=== PATIENT | male | born 1935 | race Caucasian/White ===

== ENCOUNTER → 2017-11-10 | Outpatient (CLI) | payer MEDICARE, BC ==
[~2017-11-10] MED LIST: ASPIRIN81 MG PO; CRESTOR10 MG PO; DIOVAN160 MG PO; METOPROLOL TART50 MG PO; ZETIA10 MG PO
--- NOTE | 2017-11-10 11:36 | Diagnostic Imaging Report ---
TECHNIQUE: Magnetic resonance imaging of the LEFT SHOULDER was performed WITHOUT injected contrast. COMPARISON: None available. HISTORY: Left shoulder pain FINDINGS: MUSCLES AND TENDONS: Rotator Cuff: Tendons: Status post rotator cuff repair. Full-thickness re-tear of the supraspinatus tendon with retraction approximately 3 cm coronal image 11. Additional partial thickness articular sided tearing of the infraspinatus Muscles: No focal muscle atrophy. Biceps Tendon: Poorly visualized. GLENOHUMERAL JOINT: Glenoid Labrum: Superior and posterior labral fraying. Articular Cartilage: Partial-thickness cartilage loss AC JOINT AND ACROMION: No hypertrophic degenerative changes of the acromioclavicular joint. Probable prior sub-acromioplasty BONE: No focal or infiltrative bone marrow replacing abnormality. No acute fracture. SOFT TISSUES: Subacromial subdeltoid bursal fluid. IMPRESSION: Status post rotator cuff repair with full thickness re-tear of the supraspinatus tendon with retraction. No atrophy Signed by: Dr. Syed Quintero M.D. on 11/10/2017 11:33 AM
== END ==
LOC: MRI 09:42
PROVIDERS: ATTEND Family Medicine
DX: M25.512 Pain in left shoulder (principal)

== ENCOUNTER 2018-04-06 18:48 | Emergency (ER) | payer MEDICARE, BC ==
[~2018-04-06] VITALS: Ht 160 cm; Wt 73.0 kg
[2018-04-06] MEDS ORDERED: METHYLPREDNISOLONE ACETATE 40 MG/ML VIAL IM ONE (20:30)
[2018-04-06] MEDS ORDERED: HYDRALAZINE HCL 25 MG TAB PO ONE (21:00)
--- OUTSIDE RECORDS SUMMARY | 2018-04-11 13:14 | XMS REPORT | Clinical Summary ---
Author Author [facility] Address Unknown Phone Unavailable Care Team Providers Care Senior Commissions Analyst Name Role Phone Fan Chairez MD PCP Allergies No Known Allergies Current Medications Prescription Sig. Disp. Refills Start End Date Status Date valsartan (DIOVAN) 160 MG Take 160 mg by mouth Active tablet daily. rosuvastatin (CRESTOR) 10 Take 10 mg by mouth Active MG tablet daily. metoprolol succinate XL Take 50 mg by mouth Active (TOPROL-XL) 50 mg 24 hr daily. tablet Active Problems Not on file Social History Tobacco Use Types Packs/Day Years Used Date Former Smoker Alcohol Use Drinks/Week oz/Week Comments Yes socially Sex Assigned at Date Recorded Not on file Last Filed Vital Signs Not on file Plan of Treatment Health Maintenance Due Date Last Done Comments SHINGRIX VACCINE (#1) 1987 ZOSTER VACCINE 1997 PNEUMOCOCCAL 2002 POLYSACCHARIDE VACCINE AGE 65 AND OVER PNEUMOCOCCAL-13 2002 INFLUENZA VACCINE 01/25/2018 Results Not on fileafter 04/05/2017 Insurance Payer Benefit Subscriber ID Type Phone Address Plan / Group MEDICARE MEDICARE xxxxxxxxxx Medicare [place], [place] PART A AND B BCBS BCBS xxxxxxxxxxxx PPO CHOICE PPO/GEOVANY MASTRESON PPO
--- OUTSIDE RECORDS SUMMARY | 2018-04-11 13:14 | XMS REPORT ---
Author Author [facility] Address Unknown Phone Unavailable Care Team Providers Care Timber Feller Name Role Phone Zafar MATOS Unavailable Unavailable Problems This patient has no known problems. Allergies, Adverse Reactions, Alerts This patient has no known allergies or adverse reactions. Medications This patient has no known medications. Results Test Description Test Time Test Comments Text Results Atomic Results Result Comments MRI SHOULDER LEFT WO [place] [id number] [place] [address] Patient Name: DESI POWELL MR #: [id number] : 1935 Age/Sex: 82/M Req #: [id number] Adm Physician: Ordered by: TIAN MATOS MD Report #: [id number] Location: MRI Room/Bed: Procedure: [id number] MRI/MRI SHOULDER LEFT WO Exam Date: Exam Time: REPORT STATUS: Signed TECHNIQUE: Magnetic resonance imaging of the LEFT SHOULDER was performed WITHOUT injected contrast. COMPARISON: None available. HISTORY: Left shoulder pain FINDINGS: MUSCLES AND TENDONS: Rotator Cuff: Tendons: Status post rotator cuff repair. Full-thickness re-tear of the supraspinatus tendon with retraction approximately 3 cm coronal image 11. Additional partial thickness articular sided tearing of the infraspinatus Muscles: No focal muscle atrophy. Biceps Tendon: Poorly visualized. GLENOHUMERAL JOINT: Glenoid Labrum: Superior and posterior labral fraying. Articular Cartilage: Partial-thickness cartilage loss AC JOINT AND ACROMION: No hypertrophic degenerative changes of the acromioclavicular joint. Probable prior sub-acromioplasty BONE: No focal or infiltrative bone marrow replacing abnormality. No acute fracture. SOFT TISSUES: Subacromial subdeltoid bursal fluid. IMPRESSION: Status post rotator cuff repair with full thickness re-tear of the supraspinatus tendon with retraction. No atrophy Signed by: Dr. Александр Zavala M.D. on 11/10/2017 11:33 AM Dictated By: АЛЕКСАНДР ZAVALA MD [id number] Transcribed By: ANA MARIA on 11/10/17 1133 COPY TO: TIAN MATOS MD
== END 2018-04-06 22:02 | disposition home or self-care (01) ==
LOC: FSED 18:48
DX: R09.81 Nasal congestion (principal); B34.9 Viral infection, unspecified; I10 Essential (primary) hypertension
CPT/HCPCS: 96372; 99282; J1030

== ENCOUNTER 2018-05-14 09:17 | Emergency (ER) | payer MEDICARE, BC ==
[~2018-05-14] VITALS: Ht 162.6 cm; Wt 73.0 kg
--- OUTSIDE RECORDS SUMMARY | 2018-05-14 09:20 | XMS REPORT | Clinical Summary ---
Author Author [facility] Address Unknown Phone Unavailable Care Team Providers Care Last Sorter Name Role Phone Fan Chairez MD PCP Allergies No Known Allergies Medications End Date Status Medication Sig Dispensed Refills Start Date Active valsartan (DIOVAN) 160 MG Take 160 mg 0 tablet by mouth daily. Active rosuvastatin (CRESTOR) 10 Take 10 mg by 0 MG tablet mouth daily. Active metoprolol succinate XL Take 50 mg by 0 (TOPROL-XL) 50 mg 24 hr mouth daily. tablet Active Problems Not on file Social History Date Tobacco Use Types Packs/Day Years Used Former Smoker Alcohol Use Drinks/Week oz/Week Comments Yes socially Sex Assigned at Date Recorded Not on file Industry Job Start Date Occupation Not on file Not on file Not on file Travel End Travel History Travel Start No recent travel history available. Last Filed Vital Signs Not on file Plan of Treatment Health Maintenance Due Date Last Done Comments SHINGRIX VACCINE (1 of 2) 1987 ZOSTER VACCINE 1997 PNEUMOCOCCAL 2002 POLYSACCHARIDE VACCINE AGE 65 AND OVER PNEUMOCOCCAL-13 2002 INFLUENZA VACCINE 01/25/2018 Results Not on fileafter 05/13/2017 Insurance Payer Benefit Subscriber ID Type Phone Address Plan / Group MEDICARE MEDICARE xxxxxxxxxx Medicare [place], [place] PART A AND B BCBS BCBS xxxxxxxxxxxx PPO CHOICE PPO/GEOVNAY MASTERSON PPO Advance Directives Patient has advance care planning documents on file. For more information, akash marquez contact: [facility] [address] [place] [address]
[2018-05-14] MEDS ORDERED: DEXAMETHASONE SOD PHOS 10 MG/1 ML VIAL IM ONE (09:45)
[2018-05-14] MEDS ORDERED: DEXAMETHASONE SOD PHOS 10 MG/1 ML VIAL IM NR (09:45)
== END 2018-05-14 09:50 | disposition home or self-care (01) ==
LOC: FSED 09:17
DX: R05 Cough (principal); J20.8 Acute bronchitis due to other specified organisms; I25.10 Atherosclerotic heart disease of native coronary artery without angina pectoris
CPT/HCPCS: 99283

== ENCOUNTER 2019-01-27 11:55 | Emergency (ER) | payer MEDICARE, BC, OTHER ==
[~2019-01-27] VITALS: Ht 160 cm; Wt 69.9 kg
--- OUTSIDE RECORDS SUMMARY | 2019-01-27 11:59 | XMS REPORT | Clinical Summary ---
Author Author [facility] Address Unknown Phone Unavailable Care Team Providers Care Construction Project Assistant Name Role Phone Fan Chairez MD PCP [...] Health Maintenance Due Date Last Done Comments SHINGLES VACCINES (#1) 1987 65+ PNEUMOCOCCAL VACCINE 2002 (1 of 2 - PCV13) INFLUENZA VACCINE 01/25/2019 Results Not on fileafter 01/26/2018 Insurance Type Payer Benefit Subscriber ID Effective Phone Address Plan / Dates Group Medicare MEDICARE MEDICARE xxxxxxxxxx 2002-P [place], PART A AND resent [place] B PPO BCBS BCBS xxxxxxxxxxxx 2011-P CHOICE resent PPO/GEOVANY MASTERSON PPO Advance Directives Patient has advance care planning documents on file. For more information, akash e contact: [facility] [address] [place] [address]
[2019-01-27 12:37] VITALS: BP 148/75
== END 2019-01-27 12:34 | disposition home or self-care (01) ==
LOC: FSED 11:55
DX: R05 Cough (principal); I10 Essential (primary) hypertension; I51.9 Heart disease, unspecified; J02.0 Streptococcal pharyngitis
CPT/HCPCS: 99282

== ENCOUNTER → 2019-04-11 | Outpatient (CLI) | payer MEDICARE, BC, OTHER ==
--- NOTE | 2019-04-11 14:01 | Diagnostic Imaging Report ---
History: Radiculopathy Comparison studies: None. Technique: Sagittal T1, T2 and IR, axial T2 and axial gradient echo Intravenous contrast: None Findings: Alignment: Minimal anterolisthesis of C4 on C5, retrolisthesis of C5 on C6 and anterolisthesis of C7 on T1 are most likely degenerative in etiology. Cervicomedullary junction: No abnormalities. Patent foramen magnum. Soft tissues: No T2 hyperintense inflammatory changes. Spinal cord: Normal in size and signal from the foramen magnum through T1. Vertebrae: No fracture or infection. Incidental foci of T1 hyperintensity in the C5 and C6 vertebrae may be small hemangiomas. Degenerative changes: Loss of T2 disc signal from C2 to the included T5 vertebral level to C2-C3: Patent canal and foramina. C3-C4: Symmetric disc bulge and mildly thickened ligamentum flavum result in mild canal stenosis. Moderate left foraminal stenosis due to uncovertebral arthrosis. Patent right foramen. Synovitis at the left facet with reactive T2 hyperintense C4-C5: Minimal anterolisthesis of C4 on C5 with associated uncovered disc/disc bulge, uncovertebral arthrosis and severe left and mild right facet arthrosis with severe left and mild right foraminal stenosis. No significant canal stenosis. C5-C6: Moderate loss of disc height. Minimal retrolisthesis of C5 on C6 with disc osteophyte complex, mildly thickened ligamentum flavum, uncovertebral arthrosis and mild facet arthrosis with moderate canal stenosis and severe bilateral foraminal stenosis. C6-C7: Disc osteophyte complex, mildly thickened ligamentum flavum and uncovertebral arthrosis with mild to moderate left and mild right foraminal stenosis and mild canal stenosis. C7-T1: Minimal anterolisthesis of C7 on T1 with associated uncovered disc and bilateral facet arthrosis without significant canal or foraminal stenosis. T1-T5: Mild multilevel disc degeneration. Disc bulge and facet arthrosis at T1-T2 result in mild bilateral foraminal stenosis. Incidental findings: Mild reactive T2 hyperdensity is mucosal thickening or effusion in the partially imaged mastoid air cells (left greater than right). IMPRESSION: 1. Multilevel disc degeneration, worse/moderate at C5-C6. 2. Degenerative canal stenosis from C3 to C7, worse/moderate at C5-C6. 3. Multilevel degenerative foraminal stenosis (moderate left at C3-C4, severe left at C4-C5 and bilaterally at C5-C6 and moderate left at C6-C7). 4. Multilevel facet arthrosis with moderate synovitis at the left C3-C4 facet. Signed by: Dr. Shankar Pelaez M.D. on 04/11/2019 1:58 PM
== END ==
LOC: MRI 10:29
PROVIDERS: ATTEND Family Medicine
DX: M54.12 Radiculopathy, cervical region (principal)
CPT/HCPCS: 72141

== ENCOUNTER → 2020-02-28 | Outpatient (CLI) | payer MEDICARE, BC, OTHER ==
--- NOTE | 2020-02-28 12:53 | Diagnostic Imaging Report ---
History: Dementia Comparison studies: None. Technique: Tree T1, axial DWI, axial T2 FLAIR, axial T2*GRE and axial T2. Intravenous contrast: None. Findings: Structural lesions: No intra-or extra-axial masses. No hematomas. Atrophy: Moderate disproportionate volume loss in the bilateral parietal lobes is superimposed on mild generalized parenchymal volume loss. No significant disproportionate hippocampal, brainstem or cerebellar atrophy. Maya matter: Cortex: No signal abnormalities. No encephalomalacia. Basal ganglia: No atrophy or signal abnormalities. Thalami: No signal abnormalities. White matter signal intensity: A few scattered T2 FLAIR hyperintense foci in the supratentorial white matter are nonspecific but are most compatible with chronic microvascular ischemic changes. Mild T2 FLAIR hyperintense capping banding present along the ventricular margins. Findings correlate to Fazekas Grade 1 white matter changes. Micro hemorrhages: None. Extra axial spaces: No mass, no fluid collection. Ventricles: Normal in size and configuration. No hydrocephalus. Other: Skull: No bone marrow abnormalities. Vessels: Expected flow voids present in the major arteries and dural sinuses.. Sella: Normal in size. No intra-or suprasellar abnormalities. Cranio-cervical junction: No abnormalities. Patent foramen magnum. No Chiari one malformation. Incidental findings: Mild T2 hyperintense inflammatory changes in the mastoids. IMPRESSION: 1. Moderate biparietal volume loss superimposed on mild generalized parenchymal volume loss. 2. Mild chronic microvascular ischemic changes. Signed by: Dr. Shankar Pelaez M.D. on 02/28/2020 12:50 PM
== END ==
LOC: MRI 10:43
PROVIDERS: ATTEND Family Medicine
DX: F02.80 Dementia in other diseases classified elsewhere, unspecified severity, without behavioral disturbance, psychotic disturbance, mood disturbance, and anxiety (principal)
CPT/HCPCS: 70551

== ENCOUNTER → 2021-03-13 | Outpatient (CLI) | payer MEDICARE, BC, OTHER | LOC: MRI 10:38 | PROVIDERS: ATTEND Family Medicine | DX: M25.562 Pain in left knee (principal) ==

== ENCOUNTER → 2021-08-07 | Outpatient (CLI) | payer MEDICARE, BC | LOC: NM 13:47 | PROVIDERS: ATTEND Family Medicine | DX: R10.11 Right upper quadrant pain (principal) | CPT/HCPCS: 78227; A9537 ==

== ENCOUNTER 2021-08-18 03:01 | Inpatient (IN) | payer MEDICARE, BC ==
[~2021-08-18] VITALS: Ht 160 cm; Wt 61.7 kg
[2021-08-18 03:29] LABS: BASOPHILS % 0.2 % (0.0-1.0); EOSINOPHILS % 0.1 % (0.0-6.0); HEMATOCRIT 26.8 % (38.2-49.6); LYMPHOCYTES # (AUTO) 0.6 (1.0-3.2); MEAN CORPUSCULAR HEMOGLOBIN 30.9 pg (28-32); MEAN CORPUSCULAR HGB CONC 29.9 g/dL (31-35); MEAN CORPUSCULAR VOLUME 103.5 fL (81-99); MONOCYTES # (AUTO) 0.7 (0.2-0.8); MONOCYTES % 6.9 % (4.4-11.3); NEUTROPHILS % 86.5 % (38.7-80.0); PLATELET COUNT 271 x10e3/uL (140-360); RED BLOOD COUNT 2.59 x10e6/uL (4.3-5.7); RED CELL DISTRIBUTION WIDTH 14.1 % (11.7-14.4)
[2021-08-18 03:48] LABS: ALBUMIN 3.6 g/dL (3.5-5.0); ALBUMIN/GLOBULIN RATIO 1.1 (0.8-2.0); ANION GAP 15.3 mmol/L (8-16); CALCIUM 8.9 mg/dL (8.4-10.2); CREATININE, SERUM 1.28 mg/dL (0.72-1.25); POTASSIUM 4.3 mmol/L (3.5-5.1)
[2021-08-18] MEDS ORDERED: SODIUM CHLORIDE 0.9% 50ML 50 ML ONE (04:13)
[2021-08-18] MEDS ORDERED: IOPAMIDOL 370 MG/ML 200 ML INFUS..BTL INJ ONE (04:14)
[2021-08-18] MEDS ORDERED: ASPIRIN 81 MG CHEW TAB PO ONE (04:30)
[2021-08-18 04:53] LABS: CLARITY,URINE CLEAR (CLEAR); COLOR,URINE YELLOW (YELLOW); KETONES,URINE NEGATIVE (NEGATIVE); LEUKOCYTE ESTERASE ,URINE NEGATIVE (NEGATIVE); NITRITE,URINE NEGATIVE (NEGATIVE); PROTEIN,URINE DIPSTICK TRACE (NEGATIVE); URINE UROBILINOGEN 0.2 mg/dL (0.2 - 1)
[2021-08-18 05:00] LABS: CREATINE KINASE MB 2.4 ng/mL (0-5.0)
[2021-08-18 05:01] LABS: BACTERIA,URINE FEW /HPF; EPITHELIAL CELLS,URINE RARE /LPF; RBC,URINE 0-5 /HPF (0-5); WBC,URINE (MAN) 0-5 /HPF (0-5)
[2021-08-18] MEDS: DEXTROSE 50% SYRINGE 50 ML IV PRN ×2 (05:25→06:07)
[2021-08-18] MEDS ORDERED: DEXTROSE 50% SYRINGE 50 ML IV ONE (05:26)
[2021-08-18] MEDS ORDERED: DEXTROSE 5%/0.9% SOD CHL 1,000 ML IV ONE (05:30)
[2021-08-18 08:20] VITALS: BP 160/79
[2021-08-18 08:38] VITALS: BP 160/79
[2021-08-18 12:00] VITALS: BP 146/67
[2021-08-18 12:16] LABS: CREATINE KINASE MB 2.8 ng/mL (0-5.0)
[2021-08-18 16:00] VITALS: BP 126/73
[2021-08-18 20:13] VITALS: BP 143/69
[2021-08-18 20:58] LABS: CREATINE KINASE MB 1.8 ng/mL (0-5.0)
[2021-08-19] VITALS (7 sets, daily range): BP systolic 147–175; BP diastolic 61–82
[2021-08-19 05:28] LABS: BASOPHILS % 0.7 % (0.0-1.0); EOSINOPHILS # (AUTO) 0.1 (0.0-0.4); EOSINOPHILS % 2.3 % (0.0-6.0); HEMATOCRIT 22.3 % (38.2-49.6); LYMPHOCYTES # (AUTO) 1.5 (1.0-3.2); LYMPHOCYTES % 25.7 % (18.0-39.1); MEAN CORPUSCULAR HEMOGLOBIN 31.4 pg (28-32); MEAN CORPUSCULAR HGB CONC 31.4 g/dL (31-35); MONOCYTES # (AUTO) 0.6 (0.2-0.8); MONOCYTES % 10.4 % (4.4-11.3); NEUTROPHILS # (AUTO) 3.5 (2.1-6.9); NEUTROPHILS % 60.7 % (38.7-80.0); PLATELET COUNT 231 x10e3/uL (140-360); RED BLOOD COUNT 2.23 x10e6/uL (4.3-5.7); RED CELL DISTRIBUTION WIDTH 13.9 % (11.7-14.4)
[2021-08-19 06:10] LABS: ANION GAP 9.7 mmol/L (8-16); CALCIUM 7.8 mg/dL (8.4-10.2); CREATININE, SERUM 1.25 mg/dL (0.72-1.25); POTASSIUM 3.7 mmol/L (3.5-5.1)
[2021-08-19 07:07] LABS: % IRON SATURATION 4 % (15-50); IRON 14 ug/dL (65-175); TOTAL IRON BINDING CAPACITY 319 ug/dL (261-478); TRANSFERRIN 228 mg/dL (174-364)
[2021-08-19] MEDS: SIMVASTATIN 20 MG TAB PO SCH (09:46)
[2021-08-19] MEDS: VALSARTAN 160 MG TAB PO SCH (09:46)
[2021-08-19] MEDS ORDERED: BISACODYL 10 MG SUPP PR PRN (11:00)
[2021-08-19] MEDS: IRON SUCROSE 100 MG in SODIUM CHLORIDE 0.9% 100 ML 100 ML IV SCH (12:19)
[2021-08-20] VITALS (7 sets, daily range): BP systolic 139–168; BP diastolic 71–83
[2021-08-20 05:50] LABS: BASOPHILS % 0.4 % (0.0-1.0); EOSINOPHILS # (AUTO) 0.1 (0.0-0.4); EOSINOPHILS % 1.3 % (0.0-6.0); HEMOGLOBIN 7.1 g/dL (14.0-18.0); LYMPHOCYTES # (AUTO) 1.1 (1.0-3.2); LYMPHOCYTES % 16.7 % (18.0-39.1); MEAN CORPUSCULAR HGB CONC 30.9 g/dL (31-35); MEAN CORPUSCULAR VOLUME 100.4 fL (81-99); MONOCYTES # (AUTO) 0.7 (0.2-0.8); MONOCYTES % 9.8 % (4.4-11.3); NEUTROPHILS # (AUTO) 4.8 (2.1-6.9); NEUTROPHILS % 71.7 % (38.7-80.0); PLATELET COUNT 249 x10e3/uL (140-360); RED BLOOD COUNT 2.29 x10e6/uL (4.3-5.7); RED CELL DISTRIBUTION WIDTH 13.4 % (11.7-14.4)
[2021-08-20 06:11] LABS: ANION GAP 10.7 mmol/L (8-16); CALCIUM 8.3 mg/dL (8.4-10.2); CREATININE, SERUM 1.18 mg/dL (0.72-1.25); POTASSIUM 3.7 mmol/L (3.5-5.1)
[2021-08-20] MEDS: IRON SUCROSE 100 MG in SODIUM CHLORIDE 0.9% 100 ML 100 ML IV SCH (09:06)
[2021-08-20] MEDS: SIMVASTATIN 20 MG TAB PO SCH (09:06)
[2021-08-20] MEDS: VALSARTAN 160 MG TAB PO SCH (09:06)
[2021-08-20] MEDS ORDERED: LIDOCAINE HCL 2% LOCAL INJ 5 ML SDV VIAL INJ ONE (12:56)
[2021-08-20] MEDS ORDERED: PROPOFOL IV EMULSION 10 MG/ML 20 ML VIAL ONE (12:56)
== END 2021-08-20 18:29 | disposition home or self-care (01) | DRG 384 ==
LOC: ER 03:13 → ERHOLD 04:32 → MED/SURG 08:17 → OBSVTOIN 08-19 08:24
PROVIDERS: ADMIT Family Medicine; ATTEND Family Medicine
PROC: 0DB78ZX Excision of Stomach, Pylorus, Via Natural or Artificial Opening Endoscopic, Diagnostic (ICD-10-PCS; 2021-08-20)
PROC: 0DB68ZX Excision of Stomach, Via Natural or Artificial Opening Endoscopic, Diagnostic (ICD-10-PCS; 2021-08-20)
PROC: 0DB58ZX Excision of Esophagus, Via Natural or Artificial Opening Endoscopic, Diagnostic (ICD-10-PCS; principal; 2021-08-20 14:00)
DX: K26.9 Duodenal ulcer, unspecified as acute or chronic, without hemorrhage or perforation (principal); E16.2 Hypoglycemia, unspecified; D50.0 Iron deficiency anemia secondary to blood loss (chronic); E86.0 Dehydration; F03.90 Unspecified dementia, unspecified severity, without behavioral disturbance, psychotic disturbance, mood disturbance, and anxiety; I10 Essential (primary) hypertension; R00.1 Bradycardia, unspecified; K21.9 Gastro-esophageal reflux disease without esophagitis; Z20.822 Contact with and (suspected) exposure to COVID-19; Z87.891 Personal history of nicotine dependence
CPT/HCPCS: 36415; 43239; 71045; 74177; 80048; 80053; 81001; 82550; 82553; 82607; 82948; 83525; 83540; 83880; 84206; 84466; 84484; 84681; 85025; 88305; 88312; 93005; 99284; G0378; J1756; J2001; J7042; J7799; Q9967; U0002

== ENCOUNTER 2022-03-09 08:40 | Emergency (ER) | payer MEDICARE, BC ==
[~2022-03-09] VITALS: Ht 160 cm; Wt 61.7 kg
[2022-03-09] MEDS ORDERED: SODIUM CHLORIDE 0.9% 500ML 500 ML IV ONE (09:45)
[2022-03-09 09:46] LABS: BASOPHILS % 0.6 % (0.0-1.0); EOSINOPHILS # (AUTO) 0.1 (0.0-0.4); EOSINOPHILS % 1.6 % (0.0-6.0); HEMATOCRIT 38.6 % (38.2-49.6); HEMOGLOBIN 12.3 g/dL (14.0-18.0); LYMPHOCYTES % 20.7 % (18.0-39.1); MEAN CORPUSCULAR HEMOGLOBIN 30.8 pg (28-32); MEAN CORPUSCULAR HGB CONC 31.9 g/dL (31-35); MEAN CORPUSCULAR VOLUME 96.5 fL (81-99); MONOCYTES # (AUTO) 0.5 (0.2-0.8); MONOCYTES % 9.2 % (4.4-11.3); NEUTROPHILS # (AUTO) 3.3 (2.1-6.9); NEUTROPHILS % 67.7 % (38.7-80.0); PLATELET COUNT 226 x10e3/uL (140-360); RED CELL DISTRIBUTION WIDTH 14.1 % (11.7-14.4)
[2022-03-09 10:06] LABS: CLARITY,URINE CLEAR (CLEAR); COLOR,URINE YELLOW (YELLOW); KETONES,URINE 2+ (NEGATIVE); LEUKOCYTE ESTERASE ,URINE NEGATIVE (NEGATIVE); NITRITE,URINE NEGATIVE (NEGATIVE); PROTEIN,URINE DIPSTICK 2+ (NEGATIVE); URINE UROBILINOGEN 1 mg/dL (0.2 - 1)
[2022-03-09 10:08] LABS: INR 1.08
[2022-03-09 10:10] LABS: ALANINE AMINOTRANSFERASE 8 IU/L (0-55); ALBUMIN/GLOBULIN RATIO 1.4 (0.8-2.0); ALKALINE PHOSPHATASE 47 IU/L (40-150); ANION GAP 15.5 mmol/L (8-16); BLOOD UREA NITROGEN 23 mg/dL (7-26); BUN/CREATININE RATIO 17 (6-25); CALCIUM 9.2 mg/dL (8.4-10.2); CARBON DIOXIDE 22 mmol/L (22-29); CHLORIDE 108 mmol/L (98-107); CREATINE KINASE 46 IU/L (30-200); CREATININE, SERUM 1.33 mg/dL (0.72-1.25); GLUCOSE 139 mg/dL (74-118); LIPASE 38 U/L (8-78); POTASSIUM 4.5 mmol/L (3.5-5.1); SODIUM 141 mmol/L (136-145)
[2022-03-09 10:18] LABS: BACTERIA,URINE FEW /HPF; EPITHELIAL CELLS,URINE RARE /LPF; RBC,URINE 0-5 /HPF (0-5); WBC,URINE (MAN) 0-5 /HPF (0-5)
[2022-03-09 10:19] LABS: MUCUS,URINE FEW (RARE)
[2022-03-09] MEDS ORDERED: IOPAMIDOL 370 MG/ML 100 ML INFUS..BTL INJ ONE (10:49)
[2022-03-09] MEDS ORDERED: MAGNESIUM/ALUMINUM/SIMETHICONE 30 ML UDC PO ONE (12:30)
[2022-03-09] MEDS ORDERED: LIDOCAINE VISC 2% SOLN 15 ML UDC PO ONE (12:30)
[2022-03-09] MEDS ORDERED: BELLADONNA ALK/PHENOBARBITAL 5 ML UDC PO ONE (12:30)
[2022-03-09] MEDS ORDERED: PREDNISONE20 MG PO (12:44)
[2022-03-09 12:53] VITALS: BP 155/76
== END 2022-03-09 12:56 | disposition home or self-care (01) ==
LOC: ER 08:50
DX: R10.12 Left upper quadrant pain (principal); I10 Essential (primary) hypertension; I25.2 Old myocardial infarction; E78.5 Hyperlipidemia, unspecified; Z95.5 Presence of coronary angioplasty implant and graft; F17.200 Nicotine dependence, unspecified, uncomplicated; Z87.11 Personal history of peptic ulcer disease
CPT/HCPCS: 36415; 71045; 74177; 80053; 81001; 82550; 82553; 83690; 84484; 85025; 85610; 85730; 93005; 99284; C9113; J7040; Q9967

== ENCOUNTER 2022-12-02 05:53 | Inpatient (IN) | payer MEDICARE, BC ==
[~2022-12-02] VITALS: Ht 160 cm; Wt 61.7 kg
[~2022-12-02 05:53] MED LIST changes: +PREDNISONE20 MG PO
[2022-12-02] MEDS ORDERED: Morphine 2mg Syringe 2 MG/ML SYR IV STA (06:16)
[2022-12-02] MEDS ORDERED: ONDANSETRON HCL INJ 2MG/ML 2ML 2 MG/ML VIAL IV STA (06:16)
[2022-12-02] MEDS ORDERED: SODIUM CHLORIDE 0.9% 1000ML 1,000 ML IV STA (06:32)
[2022-12-02 07:20] LABS: BASOPHILS % 0.4 % (0.0-1.0); EOSINOPHILS # (AUTO) 0.1 (0.0-0.4); EOSINOPHILS % 0.7 % (0.0-6.0); HEMATOCRIT 36.8 % (38.2-49.6); HEMOGLOBIN 11.9 g/dL (14.0-18.0); LYMPHOCYTES # (AUTO) 0.8 (1.0-3.2); LYMPHOCYTES % 9.3 % (18.0-39.1); MEAN CORPUSCULAR HEMOGLOBIN 31.1 pg (28-32); MEAN CORPUSCULAR HGB CONC 32.3 g/dL (31-35); MEAN CORPUSCULAR VOLUME 96.1 fL (81-99); MONOCYTES # (AUTO) 0.8 (0.2-0.8); NEUTROPHILS # (AUTO) 7.2 (2.1-6.9); NEUTROPHILS % 80.2 % (38.7-80.0); PLATELET COUNT 234 x10e3/uL (140-360); RED BLOOD COUNT 3.83 x10e6/uL (4.3-5.7); RED CELL DISTRIBUTION WIDTH 13.1 % (11.7-14.4)
[2022-12-02 07:43] LABS: INR 0.95; PROTHROMBIN TIME 13.2 seconds (11.9-14.5)
[2022-12-02 07:44] LABS: PARTIAL THROMBOPLASTIN TIME 36.6 seconds (23.8-35.5)
[2022-12-02 07:46] LABS: ALBUMIN 3.7 g/dL (3.5-5.0); ALBUMIN/GLOBULIN RATIO 1.1 (0.8-2.0); ALKALINE PHOSPHATASE 47 IU/L (40-150); ANION GAP 13.7 mmol/L (8-16); BLOOD UREA NITROGEN 17 mg/dL (7-26); BUN/CREATININE RATIO 12 (6-25); CALCIUM 9.5 mg/dL (8.4-10.2); CARBON DIOXIDE 22 mmol/L (22-29); CHLORIDE 106 mmol/L (98-107); CREATININE, SERUM 1.44 mg/dL (0.72-1.25); GLUCOSE 106 mg/dL (74-118); MAGNESIUM 2.1 MG/DL (1.3-2.1); POTASSIUM 3.7 mmol/L (3.5-5.1); SODIUM 138 mmol/L (136-145)
[2022-12-02 08:01] LABS: ALANINE AMINOTRANSFERASE 7 IU/L (0-55)
[2022-12-02] MEDS ORDERED: IOPAMIDOL 370 MG/ML 100 ML INFUS..BTL INJ ONE (08:50)
[2022-12-02] MEDS: ENOXAPARIN SODIUM INJ 100 MG/ML SYR SC SCH ×2 (09:42→21:37)
[2022-12-02] MEDS ORDERED: ONDANSETRON HCL INJ 2MG/ML 2ML 2 MG/ML VIAL IV PRN (09:45)
[2022-12-02] MEDS ORDERED: Morphine 2mg Syringe 2 MG/ML SYR IV PRN (10:00)
[2022-12-02 11:14] VITALS: PULSE 71; RESP 20; O2SAT 97
[2022-12-02] MEDS ORDERED: Morphine 4mg INJECTION 4 MG/ML INJ IV STA (13:21)
[2022-12-02 14:58] VITALS: BP 168/98; PULSE 79; RESP 17; TEMP 100.1; O2SAT 98
[2022-12-02 15:00] LABS: CREATINE KINASE 77 IU/L (30-200)
[2022-12-02] MEDS ORDERED: ROPINIROLE HC0.25 MG PO (16:16)
[2022-12-02] MEDS ORDERED: GEMTESA75 MG (16:16)
[2022-12-02] MEDS ORDERED: ARICEPT5 MG PO (16:29)
[2022-12-02] MEDS ORDERED: OMEPRAZOLE40 MG PO (16:29)
[2022-12-02] MEDS ORDERED: IRBESARTAN150 MG PO (16:29)
[2022-12-02 16:47] VITALS: BP 168/98; PULSE 79; RESP 17; TEMP 100.1; O2SAT 98
[2022-12-02 16:49] VITALS: BP 168/98; PULSE 79; RESP 17; TEMP 99.7; O2SAT 98
[2022-12-02 20:19] VITALS: BP 137/75; PULSE 81; RESP 18; TEMP 99.5; O2SAT 94
[2022-12-02 21:00] VITALS: BP 137/75; PULSE 81; RESP 18; TEMP 99.5; O2SAT 94
[2022-12-02] MEDS: DONEPEZIL HCL 5 MG TAB PO SCH (21:35)
[2022-12-02] MEDS: HYDROCODONE/APAP 5MG-325MG TAB PO PRN (21:36)
[2022-12-02] MEDS: ROPINIROLE HCL 0.25 MG TAB PO SCH (21:36)
[2022-12-03] VITALS (8 sets, daily range): BP systolic 107–166; BP diastolic 64–93; PULSE 56–72; RESP 16–18; TEMP 97.7–98.5; O2SAT 94–98
[2022-12-03 05:41] LABS: BASOPHILS % 0.5 % (0.0-1.0); EOSINOPHILS % 0.5 % (0.0-6.0); HEMATOCRIT 34.1 % (38.2-49.6); HEMOGLOBIN 10.9 g/dL (14.0-18.0); LYMPHOCYTES # (AUTO) 1.2 (1.0-3.2); LYMPHOCYTES % 14.5 % (18.0-39.1); MEAN CORPUSCULAR HEMOGLOBIN 31.5 pg (28-32); MEAN CORPUSCULAR VOLUME 98.6 fL (81-99); MONOCYTES # (AUTO) 1.1 (0.2-0.8); MONOCYTES % 12.7 % (4.4-11.3); NEUTROPHILS # (AUTO) 5.9 (2.1-6.9); NEUTROPHILS % 71.4 % (38.7-80.0); PLATELET COUNT 209 x10e3/uL (140-360); RED BLOOD COUNT 3.46 x10e6/uL (4.3-5.7)
[2022-12-03] MEDS ORDERED: CLONIDINE HCL 0.1 MG TAB PO PRN (06:00)
[2022-12-03 06:10] LABS: ALBUMIN/GLOBULIN RATIO 0.9 (0.8-2.0); ANION GAP 10.9 mmol/L (8-16); CHOL/HDL RATIO 2.7 (3.9-4.7); CREATININE, SERUM 1.32 mg/dL (0.72-1.25); POTASSIUM 3.9 mmol/L (3.5-5.1)
[2022-12-03] MEDS: CRESTOR 10MG PO SCH (08:20)
[2022-12-03] MEDS: PANTOPRAZOLE SOD 40 MG TABEC PO SCH (08:21)
[2022-12-03] MEDS: IRBESARTAN 150 MG TAB PO SCH (08:21)
[2022-12-03] MEDS: ENOXAPARIN SOD INJ 60 MG/0.6 ML SYR SC SCH ×2 (08:21→21:03)
[2022-12-03] MEDS: HYDROCODONE/APAP 5MG-325MG TAB PO PRN ×2 (13:37→21:04)
[2022-12-03] MEDS ORDERED: IOPAMIDOL 370 MG/ML 100 ML INFUS..BTL INJ ONE (13:52)
[2022-12-03] MEDS: DONEPEZIL HCL 5 MG TAB PO SCH (21:02)
[2022-12-03] MEDS: ROPINIROLE HCL 0.25 MG TAB PO SCH (21:02)
[2022-12-04] VITALS (7 sets, daily range): BP systolic 122–155; BP diastolic 62–93; PULSE 52–73; RESP 17–20; TEMP 97.9–98.7; O2SAT 96–100
[2022-12-04 05:53] LABS: BASOPHILS % 0.5 % (0.0-1.0); EOSINOPHILS # (AUTO) 0.2 (0.0-0.4); EOSINOPHILS % 2.6 % (0.0-6.0); HEMATOCRIT 31.6 % (38.2-49.6); HEMOGLOBIN 10.1 g/dL (14.0-18.0); LYMPHOCYTES # (AUTO) 1.1 (1.0-3.2); LYMPHOCYTES % 18.4 % (18.0-39.1); MEAN CORPUSCULAR HEMOGLOBIN 31.3 pg (28-32); MEAN CORPUSCULAR VOLUME 97.8 fL (81-99); MONOCYTES # (AUTO) 0.6 (0.2-0.8); MONOCYTES % 10.3 % (4.4-11.3); NEUTROPHILS # (AUTO) 4.2 (2.1-6.9); NEUTROPHILS % 67.9 % (38.7-80.0); PLATELET COUNT 238 x10e3/uL (140-360); RED BLOOD COUNT 3.23 x10e6/uL (4.3-5.7); RED CELL DISTRIBUTION WIDTH 12.6 % (11.7-14.4)
[2022-12-04 06:29] LABS: ALBUMIN 2.9 g/dL (3.5-5.0); ALBUMIN/GLOBULIN RATIO 0.9 (0.8-2.0); ANION GAP 10.9 mmol/L (8-16); CALCIUM 8.9 mg/dL (8.4-10.2); CREATININE, SERUM 1.25 mg/dL (0.72-1.25); POTASSIUM 3.9 mmol/L (3.5-5.1)
[2022-12-04] MEDS: HYDROCODONE/APAP 5MG-325MG TAB PO PRN (06:42)
[2022-12-04] MEDS: ENOXAPARIN SOD INJ 60 MG/0.6 ML SYR SC SCH ×2 (09:09→20:59)
[2022-12-04] MEDS: IRBESARTAN 150 MG TAB PO SCH (09:09)
[2022-12-04] MEDS: CRESTOR 10MG PO SCH (09:09)
[2022-12-04] MEDS: PANTOPRAZOLE SOD 40 MG TABEC PO SCH (09:09)
[2022-12-04] MEDS ORDERED: ONDANSETRON HCL 4 MG ORAL DISINTEGRATING TAB PO PRN (14:15)
[2022-12-04] MEDS: DONEPEZIL HCL 5 MG TAB PO SCH (20:59)
[2022-12-04] MEDS: ROPINIROLE HCL 0.25 MG TAB PO SCH (20:59)
[2022-12-05] VITALS: BP 121/55; PULSE 60; RESP 20; TEMP 98.7; O2SAT 95
[2022-12-05 04:00] VITALS: BP 143/81; PULSE 55; RESP 18; TEMP 97.8; O2SAT 100
[2022-12-05] MEDS: IRBESARTAN 150 MG TAB PO SCH (09:00)
[2022-12-05] MEDS ORDERED: APIXABAN 5 MG TABLET PO SCH (09:00)
[2022-12-05] MEDS: PANTOPRAZOLE SOD 40 MG TABEC PO SCH (09:00)
[2022-12-05] MEDS: CRESTOR 10MG PO SCH (09:00)
[2022-12-05 12:49] VITALS: BP 163/74; PULSE 88; RESP 19; TEMP 98.2; O2SAT 97
[2022-12-05 16:29] VITALS: BP 147/84; PULSE 57; RESP 19; TEMP 98.2; O2SAT 98
[2022-12-05] MEDS: APIXABAN 5 MG TABLET PO SCH (16:43)
[2022-12-05 20:00] VITALS: BP 148/99; PULSE 67; RESP 18; TEMP 98; O2SAT 97
[2022-12-05] MEDS: DONEPEZIL HCL 5 MG TAB PO SCH (20:40)
[2022-12-05] MEDS: ROPINIROLE HCL 0.25 MG TAB PO SCH (20:40)
[2022-12-05 21:53] VITALS: BP 148/99; PULSE 67; RESP 18; TEMP 98; O2SAT 97
[2022-12-06] VITALS: BP 152/62; PULSE 59; RESP 18; TEMP 98.4; O2SAT 97
[2022-12-06 04:00] VITALS: BP 145/86; PULSE 60; RESP 17; TEMP 98.5; O2SAT 95
[2022-12-06] MEDS: PANTOPRAZOLE SOD 40 MG TABEC PO SCH (08:35)
[2022-12-06] MEDS: APIXABAN 5 MG TABLET PO SCH (08:35)
[2022-12-06] MEDS: IRBESARTAN 150 MG TAB PO SCH (08:36)
[2022-12-06] MEDS: CRESTOR 10MG PO SCH (08:36)
[2022-12-06 08:45] VITALS: BP 151/88; PULSE 60; RESP 17; TEMP 98.5; O2SAT 95
[2022-12-06 08:54] VITALS: BP 151/88; PULSE 50; RESP 19; TEMP 98.3; O2SAT 98
[2022-12-06 11:47] VITALS: BP 138/90; PULSE 60; RESP 16; TEMP 98.1; O2SAT 100
== END 2022-12-06 13:17 | disposition home or self-care (01) | DRG 176 ==
LOC: ER 06:09 → ERHOLD 09:42 → MED/SURG2 14:11
PROVIDERS: ADMIT Family Medicine; ATTEND Family Medicine
DX: I26.99 Other pulmonary embolism without acute cor pulmonale (principal); I82.409 Acute embolism and thrombosis of unspecified deep veins of unspecified lower extremity; I25.10 Atherosclerotic heart disease of native coronary artery without angina pectoris; I25.2 Old myocardial infarction; K21.9 Gastro-esophageal reflux disease without esophagitis; E78.5 Hyperlipidemia, unspecified; F03.90 Unspecified dementia, unspecified severity, without behavioral disturbance, psychotic disturbance, mood disturbance, and anxiety; I12.9 Hypertensive chronic kidney disease with stage 1 through stage 4 chronic kidney disease, or unspecified chronic kidney disease; N18.30 Chronic kidney disease, stage 3 unspecified; I51.9 Heart disease, unspecified; Z95.5 Presence of coronary angioplasty implant and graft; Z87.891 Personal history of nicotine dependence; Z79.01 Long term (current) use of anticoagulants; Z20.822 Contact with and (suspected) exposure to COVID-19
CPT/HCPCS: 0223U; 36415; 71045; 71260; 74177; 76705; 80053; 80061; 82550; 83690; 83735; 83880; 84152; 84484; 85025; 85610; 85730; 93005; 93306; 93970; 94799; 99285; J1650; J2270; J2405; J7030; Q9967